=== PATIENT | female | born 1965 | race Asian ===

== ENCOUNTER 2023-08-13 16:20 | Emergency (ER) | payer BC, SELFPAY ==
[2023-08-13 16:20] VITALS: BMI 25.0
[2023-08-13 16:30] VITALS: BP 188/98
--- NOTE | 2023-08-13 17:03 | ED.GENMED ---
History of Present Illness
General
Chief Complaint: Facial Problem
Source: patient
Exam Limitations: none
Time Seen by Provider: 08/13/23 17:01
Nursing documentation reviewed up to this point in time: agreed with
History of Present Illness
History of Present Illness:
This is a 58-year-old female with a past medical history of hypertension presenting emergency department today with concerns of multiple injuries following a fall today. Patient states that she was grabbing something from an upper shelf today on
the second floor of her home when she grabbed it standing on her toes and subsequently lost her balance and fell down the stairs. Patient states that she probably fell down around 10 stairs. Patient states that when she fell, she experienced a lot
of pain in her wrist and she states that she hit her face. She had some mild nosebleeding from the left nare. Patient also had some left-sided facial pain. Patient did not lose consciousness. Patient has had no nausea or vomiting since. Patient
was able to get up on her own after the accident but does note some right lower leg pain with weightbearing. Patient denies any visual changes, any pain with eye movements. Patient takes no blood thinners. Patient denies chest pain, abdominal
pain, shortness of breath. Patient denies neck pain.
Review of Systems
Review of Systems
All Other Systems: ROS reviewed and negative except as documented in HPI and ROS
Phy Exam
Physical Exam
Physical Exam:
General: Patient is well appearing and in no acute distress; non-toxic
Skin: Warm and dry, small superficial abrasions along the bridge of the nose. No facial lacerations.
Head: Tenderness to palpation of the left zygomatic bone. No palpable bony deformity. No areas of ecchymosis, no palpable hematomas of the scalp.
Eyes: Sclera non-icteric. EOMs intact. PERRLA.
Nose: No septal hematoma. Mild tenderness to palpation of the nasal cartilage. No bony tenderness.
Cardiac: Regular rate and rhythm, no murmurs. No tenderness to palpation of the external chest wall. No palpable crepitus.
Peripheral Vascular: No lower extremity swelling or edema. 2+ radial and ulnar pulses on the right, brisk cap refill.
Pulm: Normal respiratory effort, no wheezes, rales, rhonchi. Equal breath sounds bilaterally.
Abdomen: No abdominal tenderness to palpation, no ecchymosis.
Musculoskeletal: Swelling noted over the right wrist with significant pain with wrist flexion/extension, ulnar deviation. Mild tenderness palpation of the proximal right tibia. No palpable bony deformities to the right lower extremity. No pain
with hip abduction adduction. No pain with right knee extension and flexion. No ankle pain with varus valgus stress testing.
Neuro: CN II-XII intact, no focal neurologic deficits. Sensation intact to light touch bilaterally.
Psychiatric: Appropriate mood and affect.
Course
Orders/Labs/Results
Orders:
Orders
08/13/23 17:34
CT Facial Bones W/o Iv Contras Urgent
Comment:
Reason For Exam: nose and left zygomatic pain following trauma
CT Head W/o Iv Contrast Urgent
Comment:
Reason For Exam: frontal head pain following fall from 10 stairs
CR Wrist - Right Min 3 Views Urgent
Comment:
Reason For Exam: right wrist pain
08/13/23 17:38
CR Leg Tibia/fibula Right 2 Vw Urgent
Comment:
Reason For Exam: right proximal tibia pain
08/13/23 17:44
Ibuprofen [Motrin] 600 mg PO NOW STA
08/13/23 18:30
CR Femur - Right 1 View Urgent
Comment:
Reason For Exam: right midfemur pain following fall
08/13/23 20:39
Sling Right-Treatment ONCE
Vital Signs
Initial and Last Documented VS:
Initial Vital Signs
Temp Pulse Resp BP Pulse Ox
97.9 F 72 16 188/98 98
08/13/23 16:30 08/13/23 16:30 08/13/23 16:30 08/13/23 16:30 08/13/23 16:30
Last Documented Vital Signs
Temp Pulse Resp BP Pulse Ox
97.9 F 85 20 169/80 98
08/13/23 16:30 08/13/23 18:52 08/13/23 18:52 08/13/23 18:52 08/13/23 18:52
MDM/Problems Addressed
Differential Diagnosis Includes:
ddx include epidural hematoma, concussion, colles fracture, distal radius fracture, musculoskeletal sprain/strain, contusion, tibial plateau fracture
MDM/Problems Addressed:
Fall:
This is a 58-year-old female with a past medical history of hypertension presenting emergency department today with concerns of multiple injuries following a fall today. Patient states that she was grabbing something from an upper shelf today on
the second floor of her home when she grabbed it standing on her toes and subsequently lost her balance and fell down the stairs. This patient hit her head when she fell, endorses left zygomatic pain and some nasal pain. CT of the facial wounds
demonstrate no findings to suggest recent facial bone fracture and no findings to suggest any acute intracranial abnormality. X-ray of the right tibia and fibula as well as femur are negative. Suggest sprain/strain of the right lower extremity and
contusion. Discussed supportive care management with patient. Her wrist x-ray did demonstrate distal radius fracture, considering patient is neurovascularly intact, patient was put in a sugar-tong splint and advised to call orthopedic office soon
as possible on Tuesday. Discussed return precautions with patient. Patient stable for discharge.
Chronic conditions affecting care:
htn
Acute Exacerbation and/or Progression of Chronic Illness:
HTN--patient blood pressure elevated here in the ED, no indication for acute lowering at this
*Radiology
Radiology exam reviewed: preliminary read by ED provider (Distal radius fracture with no dislocation)
*Pulse Oximetry
Patient hypoxic: no
*Critical Care Note
Total Time (30-74mins, 75-104mins- exclusive of procedures): Not Applicable
Data Reviewed
Review of Other/Old Records Reveals: Records (No previous ER records to review) and Discharge Summary (Discharge summaries to review)
Source: patient and records
Prescriptions/Medications Considered But Not Given:
Considered oxycodone or opioid medication for pain relief however patient states that she is comfortable sticking with ibuprofen as needed at this time
Patient Management
Escalation/DeEscalation of care consider admission/obs:
Admission is not indicated for this patient. Patient medically stable for discharge. I discussed this case and treatment plan with my attending Dr. Arguello.
ED Attending Note
-
Portions of this chart may have been created with voice recognition software.� Occasional wrong word or��sound alike� substitutions may have occurred due to the inherent limitations of voice recognition software.
Discharge Plan
Departure
Patient Disposition: Home (Routine Discharge)
Date of Disposition: 08/13/23
Time of Disposition: 20:39
Patient with high blood pressure during this ER visit?: Yes
Condition: Good
Discharge Problem:
Distal radius fracture, right, Fall
Instructions: Splint Care ED, Wrist fracture, BLOOD PRESSURE
Referrals:
Tanvi Tyler I., DO [Active] - Call in 1-3 days for appt
Phylicia Corado MD [Family Provider] -
Activity Restrictions/Additional Instructions:
CUT IN UPPER MOUTH: Please rinse out your mouth with salt water 3 times daily for the next few days. Please eat soft foods for the next few days and make sure that the foods are not hot.
SPLINT: The splint cannot get wet. Please keep the splint dry. Please return to the emergency department should you experience decreased sensation in your fingers, pallor, an acute worsening of your pain, or any other sings or symptoms concerning to
you.
Please call the attached referral for Dr. Tyler's office. Please say that you were seen here in the emergency department, that you have a distal radius fracture, and that you were placed in a splint.
You can take ibuprofen for pain. You can take one, 200 mg tablet every 4-6 hours. You can increase this to 400 mg every 4-6 hours if needed. Please not exceed 1200 mg/day.
Interventions
Interventions:
*Risk Screen - Suicide Last Done: 08/13/23 17:30
*General Assessment Last Done: 08/13/23 17:30
*Neglect/Abuse Screening Last Done: 08/13/23 17:30
*ED COVID-19 Vaccine History Last Done: 08/13/23 16:30
ED- Neurological Assessment Last Done: 08/13/23 17:30
ED-Skin Assessment Last Done: 08/13/23 17:30
Discharge Date and Time
Print Language: LATVIAN
[2023-08-13] MEDS: MOTRIN 600 MG PO (18:22)
[2023-08-13 18:52] VITALS: BP 169/80
== END 2023-08-13 20:57 | disposition home or self-care (01) ==
LOC: EMR 16:20
PROVIDERS: EMERGENCY PHYSICIAN Emergency Medicine; FAMILY PHYSICIAN Internal Medicine
DX: S52.501A Unspecified fracture of the lower end of right radius, initial encounter for closed fracture (principal); W10.9XXA Fall (on) (from) unspecified stairs and steps, initial encounter; I10 Essential (primary) hypertension
CPT/HCPCS: 99285; 70450; 70486; 73110; 73551; 73590

== ENCOUNTER 2023-08-16 06:19 | Day surgery (SDC) | payer BC, SELFPAY ==
[2023-08-16] VITALS (10 sets, daily range): BP systolic 120–158; BP diastolic 68–89; BMI 22.9
[2023-08-16] MEDS: TYLENOL 1000 MG PO (13:15)
[2023-08-16] MEDS: NORMOSOL-R 1000 IV (13:15)
[2023-08-16] MEDS: CELEBREX 200 MG PO (13:15)
== END 2023-08-16 18:10 | disposition home or self-care (01) ==
LOC: SDS 06:19
PROVIDERS: ATTENDING PHYSICIAN Orthopaedic Surgery
DX: S52.551A Other extraarticular fracture of lower end of right radius, initial encounter for closed fracture (principal); W19.XXXA Unspecified fall, initial encounter
CPT/HCPCS: 25607; 93005; C1713

== ENCOUNTER 2023-10-13 16:48 | Outpatient (RCR) | payer BC, SELFPAY | END 2023-10-13 23:59 | disposition home or self-care (01) | LOC: ROT 16:48 | PROVIDERS: ATTENDING PHYSICIAN Orthopaedic Surgery; FAMILY PHYSICIAN Internal Medicine | DX: S52.531D Colles' fracture of right radius, subsequent encounter for closed fracture with routine healing (principal); Z73.6 Limitation of activities due to disability | CPT/HCPCS: 97010; 97022; 97110; 97140; 97166; 97535 ==

== ENCOUNTER 2023-11-10 16:37 | Outpatient (RCR) | payer BC, SELFPAY | END 2023-11-10 23:59 | disposition home or self-care (01) | LOC: ROT 16:37 | PROVIDERS: ATTENDING PHYSICIAN Orthopaedic Surgery; FAMILY PHYSICIAN Internal Medicine | DX: Z47.89 Encounter for other orthopedic aftercare (principal); S52.531D Colles' fracture of right radius, subsequent encounter for closed fracture with routine healing; Z73.6 Limitation of activities due to disability; M25.531 Pain in right wrist | CPT/HCPCS: 97010; 97022; 97110; 97140 ==

== ENCOUNTER 2023-12-13 19:05 | Outpatient (RCR) | payer BC, SELFPAY | END 2023-12-13 23:59 | disposition home or self-care (01) | LOC: ROT 19:05 | PROVIDERS: ATTENDING PHYSICIAN Orthopaedic Surgery; FAMILY PHYSICIAN Internal Medicine | DX: Z47.89 Encounter for other orthopedic aftercare (principal); S52.531D Colles' fracture of right radius, subsequent encounter for closed fracture with routine healing; Z73.6 Limitation of activities due to disability | CPT/HCPCS: 97010; 97022; 97110; 97140 ==

== ENCOUNTER 2023-12-28 19:09 | Outpatient (RCR) | payer BC, SELFPAY | END 2023-12-28 23:59 | disposition home or self-care (01) | LOC: ROT 19:09 | PROVIDERS: ATTENDING PHYSICIAN Orthopaedic Surgery; FAMILY PHYSICIAN Internal Medicine | DX: Z47.89 Encounter for other orthopedic aftercare (principal); S52.531D Colles' fracture of right radius, subsequent encounter for closed fracture with routine healing; Z73.6 Limitation of activities due to disability | CPT/HCPCS: 97010; 97022; 97110; 97140 ==

== ENCOUNTER 2024-01-17 19:06 | Outpatient (RCR) | payer BC, SELFPAY | END 2024-01-17 23:59 | disposition home or self-care (01) | LOC: ROT 19:06 | PROVIDERS: ATTENDING PHYSICIAN Orthopaedic Surgery; FAMILY PHYSICIAN Internal Medicine | DX: Z47.89 Encounter for other orthopedic aftercare (principal); S52.531D Colles' fracture of right radius, subsequent encounter for closed fracture with routine healing; Z73.6 Limitation of activities due to disability | CPT/HCPCS: 97022; 97110 ==